=== PATIENT | female | born 1940 | race Caucasian/White ===

== ENCOUNTER 2016-11-23 13:00 | Emergency (ER) | payer MEDICARE, OTHER ==
--- NOTE | 2016-11-23 13:10 | EDM.PDOC ---
ED HPI GENERAL MEDICAL PROBLEM - General Chief Complaint: General Stated Complaint: [id number] LOW POTASSIUM Time Seen by Provider: 11/23/16 13:09 Source of Information: Reports: Patient, Old Records, RN, RN Notes Reviewed History Limitations: Reports: No Limitations - History of Present Illness INITIAL COMMENTS - FREE TEXT/NARRATIVE: Arrives to ER by POV with c/o "low potassium". Pt reports having diarrhea on/ off for several days with nausea. Last night she vomited x2. Today no vomiting, but continued nausea. Pt began having generalized muscle cramps very similar to how she felt when she had low potassium in the past. Denies abdominal pain, fever, chills, or urinary Sx's. Onset: Gradual Duration: Day(s): (4), Getting Worse Location: Reports: Generalized Quality: Reports: Ache, Other (cramps) Severity: Moderate Improves with: Reports: None Worsens with: Reports: None Associated Symptoms: Reports: No Other Symptoms - Related Data Allergies Allergy/AdvReac Type Severity Reaction Status Date / Time aspirin AdvReac Burning Verified 02/17/16 07:09 codeine AdvReac Nausea Verified 02/17/16 07:09 ibuprofen AdvReac Nausea Verified 02/17/16 07:09 naproxen AdvReac Nausea Verified 02/17/16 07:09 Home Meds: Home Meds Acetaminophen [Tylenol] 650 mg PO Q6H PRN 08/07/14 [History] Atenolol [Tenormin] 1 tab PO DAILY 08/07/14 [History] Calcium Carb & Citrate/Vit D3 [Calcium + Vitamin D3 Caplet] 1 tab PO BID [History] Hydrochlorothiazide [Hydrochlorothiazide] 1 tab PO DAILY 08/07/14 [History] Multivitamin [Multivitamins] 1 tab PO DAILY 08/07/14 [History] amLODIPine [Norvasc] 10 mg PO DAILY 08/07/14 [History] Past Medical History HEENT History: Reports: Impaired Vision Other HEENT History: Glasses Cardiovascular History: Reports: Hypertension Respiratory History: Reports: None Other Gastrointestinal History: gall stones Genitourinary History: Reports: None 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 Musculoskeletal History: Reports: Back Pain, Chronic Other Neuro History: Sciatica Psychiatric History: Reports: None Endocrine/Metabolic History: Reports: None Hematologic History: Reports: None Immunologic History: Reports: None Oncologic (Cancer) History: Reports: None Dermatologic History: Reports: None - Infectious Disease History Infectious Disease History: Reports: None - Past Surgical History Musculoskeletal Surgical History: Reports: Other (See Below) Social & Family History - Family History Family Medical History: Noncontributory - Tobacco Use Smoking Status *Q: Never Smoker Second Hand Smoke Exposure: No - Alcohol Use Days Per Week of Alcohol Use: 1 Number of Drinks Per Day: 2 Total Drinks Per Week: 2 - Recreational Drug Use Recreational Drug Use: No - Living Situation & Occupation Living situation: Reports: , with Spouse Occupation: Retired ED ROS GENERAL - Review of Systems Review Of Systems: ROS reveals no pertinent complaints other than HPI. ED EXAM, GENERAL - Physical Exam Exam: See Below Exam Limited By: No Limitations General Appearance: Alert, WD/WN, No Apparent Distress Nose: Normal Inspection Throat/Mouth: Normal Lips, Normal Teeth, Normal Gums, Normal Oropharynx, Normal Voice, No Airway Compromise, Other (dry oral membranes) Head: Atraumatic, Normocephalic Neck: Normal Inspection, Supple, Non-Tender, Full Range of Motion. No: Lymphadenopathy (L), Lymphadenopathy (R) Respiratory/Chest: No Respiratory Distress, Lungs Clear, Normal Breath Sounds, No Accessory Muscle Use, Chest Non-Tender Cardiovascular: Normal Peripheral Pulses, Regular Rate, Rhythm, No Edema, No Gallop, No JVD, No Murmur, No Rub GI/Abdominal: Normal Bowel Sounds, Soft, Non-Tender, No Organomegaly, No Distention, No Abnormal Bruit, No Mass Back Exam: Normal Inspection Extremities: Normal Inspection Neurological: Alert, Oriented, CN II-XII Intact, Normal Cognition, Normal Gait, Normal Reflexes, No Motor/Sensory Deficits Psychiatric: Normal Affect, Normal Mood Skin Exam: Warm, Dry, Intact, Normal Color, No Rash Course - Vital Signs Last Recorded V/S: Last Vital Signs Temp 36.9 C 11/23/16 17:00 Pulse 66 11/23/16 17:00 Resp 16 11/23/16 17:00 BP 120/49 L 11/23/16 17:00 Pulse Ox 100 11/23/16 17:00 Orthostatic Blood Pressure [ 127/61 Standing] Orthostatic Blood Pressure [ 139/62 Sitting] Orthostatic Blood Pressure [ 135/59 Supine] - Orders/Labs/Meds Orders: Active Orders 24 hr Category Date Time Status Orthostatic Vital Signs [RC] ASDIRECTED Care 11/23/16 13:20 Active Peripheral IV Care [RC] . DIRECTED Care 11/23/16 13:19 Active Telemetry Monitoring [Cardiac Monitoring] [RC] . Care 11/23/16 13:20 Active DIRECTED Sodium Chloride 0.9% [Saline Flush] Med 11/23/16 13:18 Active 10 ml FLUSH ASDIRECTED PRN Sodium Chloride 0.9% with KCl [Normal Saline with 40 Med 11/23/16 13:30 Active mEq KCl] 1,000 ml IV ASDIRECTED Peripheral IV Insertion Adult [OM.PC] Stat Oth 11/23/16 13:18 Ordered Medication Orders Potassium Chloride/Sodium Chloride (Normal Saline With 40 Meq Kcl) 1,000 mls @ 250 mls/hr IV ASDIRECTED MONA Last Admin: 11/23/16 13:38 Dose: 250 mls/hr Sodium Chloride (Saline Flush) 10 ml FLUSH ASDIRECTED PRN PRN Reason: Keep Vein Open Last Admin: 11/23/16 13:38 Dose: 10 ml Labs: Laboratory Tests 11/23/16 11/23/16 11/23/16 Range/Units 13:26 13:26 13:26 WBC 8.2 (5.0-10.0) 10^3/uL RBC 4.54 (4.2-5.4) 10^6/uL Hgb 13.8 (12.0-16.0) g/dL Hct 39.9 (37.0-47.0) % MCV 87.9 (80-100) fL MCH 30.4 (27.0-34.0) pg MCHC 34.6 (33.0-35.0) g/dL Plt Count 268 (150-450) 10^3/uL Neut % (Auto) 81.7 H (42.2-75.2) % Lymph % (Auto) 13.7 L (20.5-50.1) % Faulk % (Auto) 4.3 (2-8) % Eos % (Auto) 0.2 L (1.0-3.0) % Baso % (Auto) 0.1 (0.0-1.0) % Sodium 134 L (135-145) mmol/L Potassium 2.9 L (3.6-5.0) mmol/L Chloride 98 L (101-111) mmol/L Carbon Dioxide 22.0 (21.0-31.0) mmol/L Anion Gap 16.9 BUN 16 (7-18) mg/dL Creatinine 0.5 L (0.6-1.3) mg/dL Est Cr Clr Drug Dosing 72.23 mL/min Estimated GFR (MDRD) > 60 BUN/Creatinine Ratio 32.00 Glucose 174 H (74-105) mg/dL Calcium 9.1 (8.4-10.2) mg/dl Magnesium 1.7 L (1.8-2.5) mg/dL Total Bilirubin 0.8 (0.2-1.0) mg/dL AST 28 (10-42) IU/L ALT 24 (10-60) IU/L Alkaline Phosphatase 58 (42-121) IU/L Total Protein 7.3 (6.7-8.2) g/dl Albumin 4.1 (3.2-5.5) g/dl Globulin 3.2 Albumin/Globulin Ratio 1.28 Urine Color (YELLOW) Urine Appearance (CLEAR) Urine pH (5.0-9.0) Ur Specific Eckert (1.005-1.030) Urine Protein (NEGATIVE) Urine Glucose (UA) (NEGATIVE) Urine Ketones (NEGATIVE) Urine Occult Blood (NEGATIVE) Urine Nitrite (NEGATIVE) Urine Bilirubin (NEGATIVE) Urine Urobilinogen (0.2-1.0) mg/dL Ur Leukocyte Esterase (NEGATIVE) Urine RBC /HPF Urine WBC (0-5/HPF) /HPF Urine Bacteria (0-FEW/HPF) /HPF Granular Casts /LPF Urine Mucus /LPF 11/23/16 11/23/16 Range/Units 13:53 17:18 WBC (5.0-10.0) 10^3/uL RBC (4.2-5.4) 10^6/uL Hgb (12.0-16.0) g/dL Hct (37.0-47.0) % MCV (80-100) fL MCH (27.0-34.0) pg MCHC (33.0-35.0) g/dL Plt Count (150-450) 10^3/uL Neut % (Auto) (42.2-75.2) % Lymph % (Auto) (20.5-50.1) % Faulk % (Auto) (2-8) % Eos % (Auto) (1.0-3.0) % Baso % (Auto) (0.0-1.0) % Sodium 138 (135-145) mmol/L Potassium 3.5 L (3.6-5.0) mmol/L Chloride 102 (101-111) mmol/L Carbon Dioxide 27.0 (21.0-31.0) mmol/L Anion Gap 12.5 BUN 14 (7-18) mg/dL Creatinine 0.5 L (0.6-1.3) mg/dL Est Cr Clr Drug Dosing 72.23 mL/min Estimated GFR (MDRD) > 60 BUN/Creatinine Ratio Glucose 140 H (74-105) mg/dL Calcium 8.7 (8.4-10.2) mg/dl Magnesium (1.8-2.5) mg/dL Total Bilirubin (0.2-1.0) mg/dL AST (10-42) IU/L ALT (10-60) IU/L Alkaline Phosphatase (42-121) IU/L Total Protein (6.7-8.2) g/dl Albumin (3.2-5.5) g/dl Globulin Albumin/Globulin Ratio Urine Color Yellow (YELLOW) Urine Appearance Clear (CLEAR) Urine pH 7.0 (5.0-9.0) Ur Specific Eckert 1.020 (1.005-1.030) Urine Protein Negative (NEGATIVE) Urine Glucose (UA) Negative (NEGATIVE) Urine Ketones 40 H (NEGATIVE) Urine Occult Blood Negative (NEGATIVE) Urine Nitrite Negative (NEGATIVE) Urine Bilirubin Negative (NEGATIVE) Urine Urobilinogen 0.2 (0.2-1.0) mg/dL Ur Leukocyte Esterase Negative (NEGATIVE) Urine RBC 0-5 /HPF Urine WBC 0-5 (0-5/HPF) /HPF Urine Bacteria Few (0-FEW/HPF) /HPF Granular Casts Few /LPF Urine Mucus Rare /LPF Meds: Medications Generic Name Dose Route Start Last Admin Trade Name Freq PRN Reason Stop Dose Admin Potassium Chloride/Sodium Chloride 1,000 mls @ 250 mls/hr 11/23/16 13:30 11/04 13:38 Normal Saline With 40 Meq Kcl IV 250 mls/hr ASDIRECTED MONA Administration Sodium Chloride 10 ml 11/23/16 13:18 11/23/16 13:38 Saline Flush FLUSH 10 ml ASDIRECTED PRN Administration Keep Vein Open Discontinued Medications Generic Name Dose Route Start Last Admin Trade Name Duaneq PRN Reason Stop Dose Admin Ondansetron HCl 4 mg 11/23/16 13:19 11/23/16 13:35 Zofran IV 11/23/16 13:20 4 mg ONETIME ONE Administration Departure - Departure Time of Disposition: 17:55 Disposition: Home, Self-Care 01 Condition: fair Clinical Impression: Hypokalemia, Nausea Diarrhea Qualifiers: Diarrhea type: unspecified type Qualified Code(s): R19.7 - Diarrhea, unspecified - Discharge Information Instructions: Hypokalemia, Diarrhea, Adult, [id number] Forms: ED Department Discharge Additional Instructions: Rx: Zofran 4mg Rx: Potassium 20 mEq Follow up in clinic in 3 to 4 days for potassium level recheck. Return to ER if worse at any time. - My Orders Last 24 Hours: My Active Orders 11/23/16 13:18 Sodium Chloride 0.9% [Saline Flush] 10 ml FLUSH ASDIRECTED PRN Peripheral IV Insertion Adult [OM.PC] Stat 11/23/16 13:19 Peripheral IV Care [RC] . DIRECTED 11/23/16 13:20 Orthostatic Vital Signs [RC] ASDIRECTED Telemetry Monitoring [Cardiac Monitoring] [RC] . DIRECTED 11/23/16 13:30 Sodium Chloride 0.9% with KCl [Normal Saline with 40 mEq KCl] 1,000 ml IV ASDIRECTED - Assessment/Plan Last 24 Hours: My Active Orders 11/23/16 13:18 Sodium Chloride 0.9% [Saline Flush] 10 ml FLUSH ASDIRECTED PRN Peripheral IV Insertion Adult [OM.PC] Stat 11/23/16 13:19 Peripheral IV Care [RC] . DIRECTED 11/23/16 13:20 Orthostatic Vital Signs [RC] ASDIRECTED Telemetry Monitoring [Cardiac Monitoring] [RC] . DIRECTED 11/23/16 13:30 Sodium Chloride 0.9% with KCl [Normal Saline with 40 mEq KCl] 1,000 ml IV ASDIRECTED
[2016-11-23] MEDS ORDERED: Sodium Chloride 0.9% 10 ML Syringe FLUSH PRN (13:18)
[2016-11-23] MEDS ORDERED: Ondansetron 4 MG/2 ML SDV IV ONE (13:19)
[2016-11-23] MEDS ORDERED: Sodium Chloride 0.9% with KCl 1,000 ML IV SCH (13:30)
[2016-11-23 13:53] LABS: CHLORIDE,CL 98 mmol/L (101-111); SODIUM,NA 134 mmol/L (135-145)
[2016-11-23 17:49] LABS: CHLORIDE,CL 102 mmol/L (101-111); SODIUM,NA 138 mmol/L (135-145)
[2016-11-23 17:50] VITALS: BP 120/49
== END 2016-11-23 18:20 | disposition home or self-care (01) ==
LOC: DL.ED 13:00
DX: E87.6 Hypokalemia (principal); R19.7 Diarrhea, unspecified; I10 Essential (primary) hypertension; Z88.6 Allergy status to analgesic agent; Z88.5 Allergy status to narcotic agent; Z88.8 Allergy status to other drugs, medicaments and biological substances; Z79.899 Other long term (current) drug therapy
CPT/HCPCS: 36415; 80048; 80053; 81001; 83735; 85025; 96365; 96366; 96375; 99285; J2405; J3480; J7050; 99284

== ENCOUNTER 2019-12-19 06:27 | Day surgery (SDC) | payer MEDICARE, OTHER ==
[~2019-12-19 06:27] MED LIST: Midazolam 1 MG/ML 2 ML SDV ONE; fentaNYL 100 MCG/2 ML SDV ONE
[2019-12-19] MEDS ORDERED: fentaNYL 100 MCG/2 ML SDV IV ONE ×3 (06:28→07:33)
[2019-12-19] MEDS ORDERED: Midazolam 1 MG/ML 2 ML SDV IV ONE ×7 (06:28→07:44)
[2019-12-19] MEDS ORDERED: Dextrose 5%-0.45% NaCl 1,000 ML IV SCH (07:15)
[2019-12-19] MEDS ORDERED: Sodium Chloride 0.9% 10 ML Syringe FLUSH PRN (07:15)
--- NOTE | 2019-12-19 08:33 | OR ---
DATE: 12/19/2019 PROCEDURE: Total colonoscopy and multiple pinch biopsies. INSTRUMENT USED: [id number]-H190DL Olympus video colonoscope. PREMEDICATIONS: Fentanyl 100 mcg intravenous, Versed 4 mg intravenous. Nasal O2 cannula. The procedure was under pulse oximetry, BP recording, and school lunch monitor. INDICATION: The patient with chronic diarrhea, unexplained and not responsive to medical measures. Colonoscopic examination is done for detection of any polypoid lesions and removal, biopsies to be obtained for any evidence of microscopic colitis, endoscopic hemostasis therapy if needed. DESCRIPTION OF PROCEDURE: Initial rectal exam showed some perianal erythema. Rigid anoscopy was normal. The colonoscope was passed with ease. Scattered diverticula were noted in the distal left colon along with some deformity. The scope was passed with ease up to the ileocecal area. Photographs were taken of the normal-appearing cecum, identified by appendiceal orifice and thin-lipped ileocecal junction, preventing further advancement of the instrument to visualize the terminal ileum. No bleeding was noted from any of the visualized areas at the commencement of the examination. The bowel preparation was found to be adequate, [place] scale 2 in the all the regions, total score 6. Diffuse scattered yellowish bubbly material noted. No stricture. No vascular ectasia. No large isolated ulcerations seen. No evidence of diffuse inflammatory bowel disease in the form of friability, contact bleeding, or ulcerations. No polyp or tumor mass identified. Probing the proximal sides of folds and flexures using adequate distention and clearing up the stool material, withdrawal of the scope was made. Multiple pinch biopsies were taken from the normal-appearing mucosa of the mid transverse colon, mid descending colon, and rectosigmoid, and sent for any histopathologic evidence of microscopic colitis. No bleeding was noted from any of the visualized areas at the completion of examination. IMPRESSION: Diverticulosis. The patient tolerated the procedure well. [facility] /[id number]
[2019-12-19 10:12] VITALS: BP 137/74; PULSE 63
[2020-01-04] MEDS ORDERED: Sodium Chloride 0.9% 10 ML Syringe FLUSH PRN (05:30)
[2020-01-04] MEDS ORDERED: Dextrose 5%-0.45% NaCl 1,000 ML IV SCH (05:30)
== END 2019-12-19 10:15 | disposition home or self-care (01) ==
LOC: DL.ENDO 06:27
PROVIDERS: ATTEND Internal Medicine Gastroenterology
DX: K57.30 Diverticulosis of large intestine without perforation or abscess without bleeding (principal); K52.9 Noninfective gastroenteritis and colitis, unspecified; I10 Essential (primary) hypertension; F41.1 Generalized anxiety disorder; Z90.49 Acquired absence of other specified parts of digestive tract; Z90.710 Acquired absence of both cervix and uterus; Z98.890 Other specified postprocedural states; Z88.5 Allergy status to narcotic agent; Z88.6 Allergy status to analgesic agent; Z88.8 Allergy status to other drugs, medicaments and biological substances
CPT/HCPCS: 45380; J2250; J3010; J7042

== ENCOUNTER 2020-06-03 05:21 | Day surgery (SDC) | payer MEDICARE, OTHER ==
[2020-06-03] MEDS ORDERED: Midazolam 1 MG/ML 2 ML SDV IV ONE ×3 (05:22→06:42)
[2020-06-03] MEDS ORDERED: fentaNYL 100 MCG/2 ML SDV IV ONE ×3 (05:22→06:41)
[2020-06-03] MEDS ORDERED: Dextrose 5%-0.45% NaCl 1,000 ML IV SCH (05:50)
[2020-06-03] MEDS ORDERED: Midazolam 1 MG/ML 2 ML SDV ONE (06:14)
[2020-06-03] MEDS ORDERED: fentaNYL 100 MCG/2 ML SDV ONE (06:15)
--- NOTE | 2020-06-03 07:57 | OR ---
DATE: 06/03/2020 PROCEDURES: Esophagogastroduodenoscopy and multiple pinch biopsies. INSTRUMENT USED: GIF-HQ190 Olympus video panendoscope. PREMEDICATIONS: No oral or topical anesthesia used. Fentanyl 100 mcg intravenous, Versed 1.5 mg intravenous. The procedure was done under pulse oximetry, BP recording, and ekg monitor tech. INDICATION: The patient with persistent chronic diarrhea and dyspepsia, unexplained and not responsive to medical measures. Esophagogastroduodenoscopy is performed for detection of any active erosive lesions, H pylori status to be determined, biopsies to be obtained for celiac disease, endoscopic hemostasis therapy if needed. PROCEDURE IN DETAIL: The scope was passed with ease. Adequate visualization of the esophagus was made from proximal to distal areas. No upper esophageal lesions identified. No distal esophageal stricture. No uphill or downhill esophageal varices. No Grace-Post tear. No evidence of erosive esophagitis by Linn criteria. No esophageal polyp or tumor mass identified. Z-line was seen at around 40 cm distal to the oral verge, configuration consistent with grade 1 by ZAP classification. No proximal gastric varices noted. Gastric fundus examination by retroflexion showed diminutive benign-appearing polyp. No gastric ulcer, malignant mass, or vascular ectasia identified. Duodenal bulb showed no ulcer. Visualized second part of the duodenum was unremarkable. Multiple pinch biopsies, 4 in number, were taken from different areas of the second part of the duodenum and tissues were also obtained from the duodenal bulb at 9 and 12 o'clock positions and sent for any histopathologic evidence of celiac disease. Multiple pinch biopsies were also taken from the gastric antrum and proximal body and sent for PyloriTek test for H pylori and histopathology. No bleeding was noted from any of the visualized areas at the completion of examination. Photographs were taken of the duodenal bulb, gastric antrum, fundus, and distal esophagus. IMPRESSION: Diminutive gastric fundus polyps. The patient tolerated the procedure well. [facility] /[id number]
[2020-06-03 12:16] VITALS: BP 152/59; PULSE 16
== END 2020-06-03 09:05 | disposition home or self-care (01) ==
LOC: DL.ENDO 05:21
PROVIDERS: ATTEND Internal Medicine Gastroenterology
DX: K31.89 Other diseases of stomach and duodenum (principal); K52.9 Noninfective gastroenteritis and colitis, unspecified; K31.7 Polyp of stomach and duodenum; F41.1 Generalized anxiety disorder; I10 Essential (primary) hypertension; Z79.899 Other long term (current) drug therapy
CPT/HCPCS: 43239; 87077; J2250; J3010; J7042

== ENCOUNTER 2024-09-11 16:42 | Emergency (ER) | payer MEDICARE, OTHER ==
[2024-09-11 16:56] VITALS: BP 131/67; PULSE 74
[2024-09-11] MEDS: Ketorolac 30 MG/ML SDV IM ONE (17:57)
== END 2024-09-11 18:26 | disposition home or self-care (01) ==
LOC: DL.ED 16:42
DX: S32.592A Other specified fracture of left pubis, initial encounter for closed fracture (principal); I10 Essential (primary) hypertension; E78.00 Pure hypercholesterolemia, unspecified; Z88.5 Allergy status to narcotic agent; Z88.8 Allergy status to other drugs, medicaments and biological substances; Z88.6 Allergy status to analgesic agent; Z79.899 Other long term (current) drug therapy; W54.1XXA Struck by dog, initial encounter; Y93.89 Activity, other specified
CPT/HCPCS: 73502; 96372; 99283; 99284; J1885

== ENCOUNTER 2024-09-13 10:58 | Emergency (ER) | payer MEDICARE, OTHER ==
[2024-09-13 11:18] VITALS: BP 151/54; PULSE 65
[2024-09-13] MEDS: Lidocaine 5% 700 MG Patch TOP ONE (11:36)
== END 2024-09-13 11:50 | disposition home or self-care (01) ==
LOC: DL.ED 10:58
DX: S32.592A Other specified fracture of left pubis, initial encounter for closed fracture (principal); I10 Essential (primary) hypertension; M19.90 Unspecified osteoarthritis, unspecified site; Z88.8 Allergy status to other drugs, medicaments and biological substances; Z88.6 Allergy status to analgesic agent; Z79.899 Other long term (current) drug therapy; Z86.16 Personal history of COVID-19; Z90.49 Acquired absence of other specified parts of digestive tract; Z90.710 Acquired absence of both cervix and uterus; W19.XXXA Unspecified fall, initial encounter
CPT/HCPCS: 99283; A9270

== ENCOUNTER 2024-09-20 10:54 | Inpatient (IN) | payer MEDICARE, OTHER ==
[2024-09-20] MEDS: Ondansetron 4 MG/2 ML SDV IVPUSH ONE (11:29)
[2024-09-20] MEDS: HYDROmorphone 0.5 MG/0.5 ML Syringe IVPUSH ONE (13:32)
[2024-09-20] MEDS ORDERED: Naloxone 2 MG/2 ML Syringe IV PRN (13:46)
[2024-09-20] MEDS ORDERED: Acetaminophen 325 MG Tab PO PRN (13:54)
[2024-09-20] MEDS: fentaNYL 12 MCG/HR Transdermal Patch TRDERM SCH (14:03)
[2024-09-20] MEDS: Acetaminophen 325 MG Tab PO SCH (14:03)
[2024-09-20] MEDS: Heparin Sodium 5,000 Units/ML Vial SUBCUT SCH (14:04)
[2024-09-20] MEDS: Polyethylene Glycol 3350 Powder 17 GM Packet PO SCH (14:26)
[2024-09-20] MEDS: Docusate Sodium 100 MG Cap PO SCH (14:26)
[2024-09-20] MEDS: Simethicone 80 MG Tab.Chew PO PRN (14:56)
[2024-09-20] MEDS: Ibuprofen 400 MG Tab PO PRN (14:56)
[2024-09-20] MEDS: Potassium Chloride 10 MEQ Tab.ER PO SCH (20:40)
[2024-09-20] MEDS: Check FENTANYL Patch TRDERM SCH (20:40)
[2024-09-20] MEDS: Latanoprost 0.005% Ophth Soln 2.5 ML Bottle EYERT SCH (20:51)
[2024-09-20] MEDS: fentaNYL 100 MCG/2 ML SDV IVPUSH ONE (22:39)
[2024-09-20] MEDS: fentaNYL 100 MCG/2 ML SDV ONE (22:39)
[2024-09-21] MEDS: Amitriptyline 10 MG Tab PO PRN (03:53)
[2024-09-21] MEDS ORDERED: Latanoprost 0.005% Ophth Soln 2.5 ML Bottle EYERT SCH (09:00)
[2024-09-21] MEDS: Atenolol 50 MG Tab PO SCH (09:03)
[2024-09-21] MEDS: amLODIPine 5 MG Tab PO SCH (09:03)
[2024-09-21] MEDS: Multivitamins with Iron/Calcium/Folic Acid/Minerals Tab PO SCH (09:03)
[2024-09-21] MEDS: Hydrochlorothiazide 25 MG Tab PO SCH (09:04)
[2024-09-21] MEDS: Escitalopram 10 MG Tab PO SCH (09:04)
[2024-09-21] MEDS: methylPREDNISolone Sodium Succinate 40 MG/1 ML SDV IVPUSH ONE (11:23)
[2024-09-21] MEDS: Sodium Chloride 0.9% 10 ML Syringe FLUSH PRN (11:25)
[2024-09-23 06:40] LABS: BASOPHILS PERCENT AUTO 0.4 % (0.0-1.0); EOSINOPHILS PERCENT AUTO 3.6 % (1.0-3.0); HEMATOCRIT 38.4 % (37.0-47.0); HEMOGLOBIN 12.6 g/dL (12.0-16.0); LYMPHOCYTES PERCENT AUTO 41.6 % (20.5-50.1); MEAN CORPUSCULAR HEMOGLOBIN 29.4 pg (27.0-34.0); MEAN CORPUSCULAR HGB CONC 32.8 g/dL (33.0-35.0); MEAN CORPUSCULAR VOLUME 89.7 fL (80-100); MONOCYTES PERCENT AUTO 11.3 % (2-8); NEUTROPHILS PERCENT AUTO 43.1 % (42.2-75.2); PLATELET COUNT,PLT 408 10^3/uL (150-450); RED BLOOD CELL COUNT 4.28 10^6/uL (4.2-5.4); WHITE BLOOD CELL COUNT,WBC 6.9 10^3/uL (5.0-10.0)
[2024-09-26 08:36] VITALS: BP 153/68; PULSE 72
== END 2024-09-26 09:12 | disposition swing bed (61) | DRG 535 ==
LOC: DL.ED 10:54 → DL.MS 12:34
PROVIDERS: ADMIT Internal Medicine; ATTEND Internal Medicine
DX: S32.402S Unspecified fracture of left acetabulum, sequela (principal); S32.592A Other specified fracture of left pubis, initial encounter for closed fracture; S32.402A Unspecified fracture of left acetabulum, initial encounter for closed fracture; H54.7 Unspecified visual loss; E78.00 Pure hypercholesterolemia, unspecified; I10 Essential (primary) hypertension; K52.9 Noninfective gastroenteritis and colitis, unspecified; M19.90 Unspecified osteoarthritis, unspecified site; X58.XXXA Exposure to other specified factors, initial encounter; F41.9 Anxiety disorder, unspecified; F32.A Depression, unspecified; K58.9 Irritable bowel syndrome, unspecified; H40.9 Unspecified glaucoma; M81.0 Age-related osteoporosis without current pathological fracture; Z88.5 Allergy status to narcotic agent; Z88.8 Allergy status to other drugs, medicaments and biological substances; Z79.899 Other long term (current) drug therapy; Z86.16 Personal history of COVID-19; Z98.49 Cataract extraction status, unspecified eye; Z98.890 Other specified postprocedural states; Z90.49 Acquired absence of other specified parts of digestive tract; Z90.710 Acquired absence of both cervix and uterus; Z90.722 Acquired absence of ovaries, bilateral; Z90.79 Acquired absence of other genital organ(s); Z98.51 Tubal ligation status; W19.XXXA Unspecified fall, initial encounter
CPT/HCPCS: 72192; 96374; 99283; 99285; J2405; 36415; 73080-LT; 85025; 94010; 97110-GO; 97110-GP; 97116-GP; 97161-GP; 97165-GO; 97530-GO; 97530-GP; 97535-GO; 99223; 99232; 99233; 99239; A9270-GY; J1644; J2919; J3010

== ENCOUNTER 2024-09-25 08:59 | Inpatient (IN) | payer MEDICARE, OTHER ==
[2024-09-26] MEDS ORDERED: Naloxone 2 MG/2 ML Syringe IV PRN (08:11)
[2024-09-26] MEDS ORDERED: Simethicone 80 MG Tab.Chew PO PRN (08:11)
[2024-09-26] MEDS: Hydrochlorothiazide 25 MG Tab PO SCH (09:25)
[2024-09-26] MEDS: Potassium Chloride 10 MEQ Tab.ER PO SCH (09:26)
[2024-09-26] MEDS: Multivitamins with Iron/Calcium/Folic Acid/Minerals Tab PO SCH (09:27)
[2024-09-26] MEDS: Atenolol 50 MG Tab PO SCH (09:27)
[2024-09-26] MEDS: Escitalopram 10 MG Tab PO SCH (09:27)
[2024-09-26] MEDS: amLODIPine 5 MG Tab PO SCH (09:27)
[2024-09-26] MEDS: Acetaminophen 325 MG Tab PO ONE (11:17)
[2024-09-26] MEDS ORDERED: fentaNYL 12 MCG/HR Transdermal Patch TRDERM SCH (13:45)
[2024-09-26] MEDS: Acetaminophen 325 MG Tab PO SCH (14:46)
[2024-09-26] MEDS: Heparin Sodium 5,000 Units/ML Vial SUBCUT SCH (14:47)
[2024-09-26] MEDS: Ibuprofen 400 MG Tab PO PRN (19:13)
[2024-09-26] MEDS: Amitriptyline 10 MG Tab PO PRN (21:14)
[2024-09-26] MEDS: Check FENTANYL Patch TRDERM SCH (21:14)
[2024-09-27] MEDS: Latanoprost 0.005% Ophth Soln 2.5 ML Bottle EYERT SCH (01:53)
[2024-09-28] MEDS: Lidocaine 5% 700 MG Patch TOP SCH (16:19)
[2024-09-28] MEDS: Ibuprofen 200 MG Tab PO SCH (17:51)
[2024-09-28] MEDS: Pantoprazole 40 MG Tab.CR PO SCH (20:18)
[2024-09-28] MEDS: Check Patch TRDERM SCH (20:19)
[2024-09-29 06:30] LABS: BLOOD UREA NITROGEN,BUN 17 mg/dL (7-18); CALCIUM 8.4 mg/dL (8.5-10.1); CARBON DIOXIDE,CO2 25 mmol/L (21-32); CHLORIDE,CL 106 mmol/L (98-107); CREATININE 0.56 mg/dL (0.55-1.02); GLUCOSE RANDOM 86 mg/dL (70-99); SODIUM,NA 143 mmol/L (136-145)
[2024-09-29 06:31] LABS: ESTIMATED GFR 90 mL/min (>=60)
[2024-10-02 07:37] VITALS: BP 139/66; PULSE 82
== END 2024-10-02 12:45 | disposition home health service (06) | DRG 948 ==
LOC: DL.MS 09-26 09:12 → UNDOADMIN 09-26 09:22 → DL.MS 09-26 09:22
PROVIDERS: ADMIT Internal Medicine; ATTEND Internal Medicine
DX: R52 Pain, unspecified (principal); H54.7 Unspecified visual loss; E78.00 Pure hypercholesterolemia, unspecified; I10 Essential (primary) hypertension; M19.90 Unspecified osteoarthritis, unspecified site; M54.9 Dorsalgia, unspecified; G89.29 Other chronic pain; F41.9 Anxiety disorder, unspecified; M81.0 Age-related osteoporosis without current pathological fracture; M85.80 Other specified disorders of bone density and structure, unspecified site; Z86.16 Personal history of COVID-19; Z98.890 Other specified postprocedural states; Z98.49 Cataract extraction status, unspecified eye; Z88.8 Allergy status to other drugs, medicaments and biological substances; Z79.899 Other long term (current) drug therapy; Z90.49 Acquired absence of other specified parts of digestive tract; Z90.710 Acquired absence of both cervix and uterus; Z98.51 Tubal ligation status
CPT/HCPCS: 36415; 80048; 97110-GO; 97110-GP; 97161-GP; 97165-GO; 97530-GO; 97530-GP; 97535-GO; A9270-GY; J1644